=== PATIENT | female | born 1940 | race African-American/Black ===

== ENCOUNTER 2017-05-21 11:11 | Day surgery (SDC) | payer MEDICARE, OTHER ==
[~2017-05-21 11:11] MED LIST: Buffered Lidocaine 0.9% SYRIN* 5 ML/SYR SYRINGE INTRADERM ONE
[2017-05-21] MEDS ORDERED: Clindamycin 900 MG IVPREMIX(* 900 MG/50 ML SDV IV ONE (11:22)
[2017-05-21] MEDS ORDERED: Buffered Lidocaine 0.9% SYRIN* 5 ML/SYR SYRINGE ONE (11:22)
[2017-05-21] MEDS ORDERED: Bupivacaine 0.25% SDV* 30 ML ONE (13:31)
[2017-05-21] MEDS ORDERED: Midazolam* 1 MG/ML 5 ML VIAL (5 MG) ONE (13:57)
[2017-05-21 14:56] VITALS: BP 141/78
== END 2017-05-21 15:13 | disposition home or self-care (01) ==
LOC: OREAST 11:11
PROVIDERS: ATTEND Plastic Surgery
DX: G56.02 Carpal tunnel syndrome, left upper limb (principal); I10 Essential (primary) hypertension; E06.3 Autoimmune thyroiditis; Z87.891 Personal history of nicotine dependence
CPT/HCPCS: J2250

== ENCOUNTER 2017-09-13 19:15 | Emergency (ER) | payer MEDICARE, OTHER ==
[2017-09-13 20:25] LABS: Hematocrit 35 % (35-47); Hemoglobin 12.1 g/dl (12.0-16.0); Mean Corpuscular HGB Conc 34 g/dl (31-36); Mean Corpuscular Hemoglobin 32 pg (27-31); Mean Corpuscular Volume 93 fL (80-97); Mean Platelet Volume 8 um3 (7.4-10.4); Red Cell Distribution Width 15 % (10.5-15); White Blood Count 7.1 10^3/ul (3.5-10.8)
[2017-09-13 20:38] LABS: Albumin 3.9 g/dL (3.2-5.2); BUN/Creatinine Ratio 20.4 (8-20); Calcium 9.8 mg/dL (8.6-10.3); EGFR African American 67.2 (>60); EGFR Non-African American 52.2 (>60); Globulin 2.9 g/dL (2-4); Magnesium 1.9 mg/dL (1.9-2.7); Potassium 3.3 mmol/L (3.5-5.0); Total Bilirubin 0.4 mg/dL (0.2-1.0); Total Protein 6.8 g/dL (6.4-8.9)
[2017-09-13 20:39] LABS: Troponin I 0.01 ng/mL (<0.04)
[2017-09-13 21:18] LABS: TSH (Thyroid Stimulating Horm) 0.65 mcIU/mL (0.34-5.60)
--- NOTE | 2017-09-13 22:24 | ED ---
Leonor Mejia SooYoung, scribed for Kevin Gurrola MD on 09/13/17 at 1934 . 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 Pt was in a restaurant with her friend, and pt experienced dyspnea, noticed she was having difficulty speaking because she didn't have enough breath. Pt waited for her breathing to return to normally, but it didn't quite resolve. Associated sx: dizziness described as lightheadedness, diaphoretic. Pt denies feeling any pain anywhere. Denies pallor. Pt states feeling OK at bedside. Pt and friend were at a concert prior to dinner, and friend states they did a fair amount of walking. Pt is physically active, works out 3x a week. Non-smoker. No PMHx of cardiac issues. - History Of Current Complaint Chief Complaint: EDDizziness Stated Complaint: DIZZINESS Time Seen by Provider: 09/13/17 19:26 Hx Obtained From: Patient, Family/Babcock Tester - neighbor/friend Onset/Duration: Resolved Timing: Minutes Severity Initially: Moderate Severity Currently: Moderate Character: Lightheaded Associated Signs And Symptoms: Positive: Diaphoresis, Other: - dizziness - Allergies/Home Medications Allergies/Adverse Reactions: Allergies Allergy/AdvReac Type Severity Reaction Status Date / Time Penicillins Allergy Unknown Unknown Verified 09/13/17 19:42 Reaction Details PMH/Surg Hx/FS Hx/Imm Hx Previously Healthy: No Endocrine/Hematology History: Reports: Hx Thyroid Disease - GOITER Denies: Hx Diabetes Cardiovascular History: Reports: Hx Angina, Hx Cardiomegaly - NO PROBLEMS, Hx Hypertension - CONTROL WITH MEDS PT. STATES Denies: Hx Hypercholesterolemia, Hx Pacemaker/ICD, Hx Peripheral Vascular Disease Musculoskeletal History: Reports: Hx Osteoporosis, Other Musculoskeletal History - CARPAL TUNNEL LEFT HAND, RIGHT HAND REPAIRED Denies: Hx Arthritis, Hx Rheumatoid Arthritis Sensory History: Reports: Hx Cataracts - BILAT, Hx Contacts or Glasses - GLASSES , Hx Hearing Aid - BILAT Denies: Hx Glaucoma Opthamlomology History: Reports: Hx Cataracts - BILAT, Hx Contacts or Glasses - GLASSES Denies: Hx Glaucoma Neurological History: Denies: Hx Headaches, Hx Seizures, Hx Transient Ischemic Attacks (TIA) Psychiatric History: Denies: Hx Anxiety, Hx Depression, Hx Panic Disorder - Cancer History Hx Chemotherapy: No Hx Radiation Therapy: No - Surgical History Surgery Procedure, Year, and Place: myomectomy 1970's,RIGHT carpal tunnel,[facility]. left breast biopsy, [facility] 2006 Hx Anesthesia Reactions: No - Family History Known Family History: Positive: Cardiac Disease, Hypertension, Diabetes, Other - [place] - Social History Occupation: Employed Full-time Lives: Alone Alcohol Use: Weekly Alcohol Amount: WINE Hx Substance Use: No Substance Use Type: Reports: None Hx Tobacco Use: Yes Smoking Status (MU): Former Smoker Amount Used/How Often: 1/2 PPD Length of Time of Smoking/Using Tobacco: 15 YEARS Have You Smoked in the Last Year: No Review of Systems Positive: Skin Diaphoresis. Negative: Other - neg: pallor Positive: Other - pos: dyspnea Neurological: Other - pos: dizziness/lightheadedness All Other Systems Reviewed And Are Negative: Yes Physical Exam - Summary Physical Exam Summary: The patient is well-nourished in no acute distress and in no acute pain. The skin is warm and dry and skin color reflects adequate perfusion. HEENT: The head is normocephalic and atraumatic. The pupils are equal and reactive. The conjunctivae are clear and without drainage. Nares are patent and without drainage. Mouth reveals moist mucous membranes and the throat is without erythema and exudate. The external ears are intact. The ear canals are patent and without drainage. The tympanic membranes are intact. Neck is supple with full range of motion and non-tender. There are no carotid bruits. There is no neck vein distension. Respiratory: Chest is non-tender. Lungs are clear to auscultation and breath sounds are symmetrical and equal. Cardiovascular: Hear is regular rate and rhythm. There is no murmur or rub auscultated. There is no peripheral edema and pulses are symmetrical and equal. Abdomen: The abdomen is soft and non-tender. There are normal bowel sounds heard in all four quadrants and there is no organomegaly palpated. Musculoskeletal: There is no back pain noted. Extremities are non-tender with full range of motion. There is good capillary refill. There is no peripheral edema or calf tenderness elicited. Neurological: Patient is alert and oriented to person, place and time. The patient has symmetrical motor strength in all four extremities. Cranial nerves are grossly intact. Deep tendon reflexes are symmetrical and equal in all four extremities. Psychiatric: The patient has an appropriate affect and does not exhibit any anxiety or depression. Triage Information Reviewed: Yes Vital Signs On Initial Exam: Initial Vitals Pulse BP 59 130/68 09/13/17 19:23 09/13/17 19:23 Vital Signs Reviewed: Yes Diagnostics - Vital Signs Vital Signs Pulse BP 09/13/17 19:23 66 110/63 - Laboratory Lab Results: Lab Results 09/13/17 09/13/17 09/13/17 Range/Units 20:15 20:15 20:15 WBC 7.1 (3.5-10.8) 10^3/ul RBC 3.80 L (4.0-5.4) 10^6/ul Hgb 12.1 (12.0-16.0) g/dl Hct 35 (35-47) % MCV 93 (80-97) fL MCH 32 H (27-31) pg MCHC 34 (31-36) g/dl RDW 15 (10.5-15) % Plt Count 220 (150-450) 10^3/ul MPV 8 (7.4-10.4) um3 Neut % (Auto) 78.9 (38-83) % Lymph % (Auto) 12.3 L (25-47) % [place] % (Auto) 7.4 (1-9) % Eos % (Auto) 0.5 (0-6) % Baso % (Auto) 0.9 (0-2) % Absolute Neuts (auto) 5.6 (1.5-7.7) 10^3/ul Absolute Lymphs (auto) 0.9 L (1.0-4.8) 10^3/ul Absolute Monos (auto) 0.5 (0-0.8) 10^3/ul Absolute Eos (auto) 0 (0-0.6) 10^3/ul Absolute Basos (auto) 0.1 (0-0.2) 10^3/ul Absolute Nucleated RBC 0.01 10^3/ul Nucleated RBC % 0.1 Sodium 138 (133-145) mmol/L Potassium 3.3 L (3.5-5.0) mmol/L Chloride 102 (101-111) mmol/L Carbon Dioxide 28 (22-32) mmol/L Anion Gap 8 (2-11) mmol/L BUN 21 (6-24) mg/dL Creatinine 1.03 H (0.51-0.95) mg/dL Est GFR ( Amer) 67.2 (>60) Est GFR (Non-Af Amer) 52.2 (>60) BUN/Creatinine Ratio 20.4 H (8-20) Glucose 88 (70-100) mg/dL Lactic Acid 1.3 (0.5-2.0) mmol/L Calcium 9.8 (8.6-10.3) mg/dL Magnesium 1.9 (1.9-2.7) mg/dL Total Bilirubin 0.40 (0.2-1.0) mg/dL AST 22 (13-39) U/L ALT 12 (7-52) U/L Alkaline Phosphatase 54 (34-104) U/L Troponin I 0.01 (<0.04) ng/mL Total Protein 6.8 (6.4-8.9) g/dL Albumin 3.9 (3.2-5.2) g/dL Globulin 2.9 (2-4) g/dL Albumin/Globulin Ratio 1.3 (1-3) TSH 0.65 (0.34-5.60) mcIU/mL // Range/Units 21:50 WBC (3.5-10.8) 10^3/ul RBC (4.0-5.4) 10^6/ul Hgb (12.0-16.0) g/dl Hct (35-47) % MCV (80-97) fL MCH (27-31) pg MCHC (31-36) g/dl RDW (10.5-15) % Plt Count (150-450) 10^3/ul MPV (7.4-10.4) um3 Neut % (Auto) (38-83) % Lymph % (Auto) (25-47) % [place] % (Auto) (1-9) % Eos % (Auto) (0-6) % Baso % (Auto) (0-2) % Absolute Neuts (auto) (1.5-7.7) 10^3/ul Absolute Lymphs (auto) (1.0-4.8) 10^3/ul Absolute Monos (auto) (0-0.8) 10^3/ul Absolute Eos (auto) (0-0.6) 10^3/ul Absolute Basos (auto) (0-0.2) 10^3/ul Absolute Nucleated RBC 10^3/ul Nucleated RBC % Sodium (133-145) mmol/L Potassium (3.5-5.0) mmol/L Chloride (101-111) mmol/L Carbon Dioxide (22-32) mmol/L Anion Gap (2-11) mmol/L BUN (6-24) mg/dL Creatinine (0.51-0.95) mg/dL Est GFR ( Amer) (>60) Est GFR (Non-Af Amer) (>60) BUN/Creatinine Ratio (8-20) Glucose (70-100) mg/dL Lactic Acid (0.5-2.0) mmol/L Calcium (8.6-10.3) mg/dL Magnesium (1.9-2.7) mg/dL Total Bilirubin (0.2-1.0) mg/dL AST (13-39) U/L ALT (7-52) U/L Alkaline Phosphatase (34-104) U/L Troponin I 0.01 (<0.04) ng/mL Total Protein (6.4-8.9) g/dL Albumin (3.2-5.2) g/dL Globulin (2-4) g/dL Albumin/Globulin Ratio (1-3) TSH (0.34-5.60) mcIU/mL Result Diagrams: 09/13/17 20:15 09/13/17 20:15 Lab Statement: Any lab studies that have been ordered have been reviewed, and results considered in the medical decision making process. - EKG 2032 Cardiac Rate: NL EKG Rhythm: Sinus Rhythm - 61bpm EKG Interpretation: Non-specific T wave changes in anterior leads 2123 Cardiac Rate: NL EKG Rhythm: Sinus Rhythm EKG Comparison: No Significant Change - from EKG at 2032 Re-Evaluation - Re-Evaluation 1 Re-Evaluation Time: 21:45 Change: Unchanged Comment: Discussing results with pt. Pt is still feeling OK. Will draw 2nd trop. Dizzy Course/Dx - Course Course Of Treatment: Ms. Myers presented after a near syncopal episode that had resolved. At no point did she have SOB or chest pain. It occured as she was just finishiing a large meal. She describes a vagal-type reaction and she was monitored here without any changes. Her initial ecg showed wome nondiagnostic T wave changes in the anteroseptal leads. We have no old ones to compare. A second ecg was unchanged and two trops were negative. - Diagnoses Provider Diagnoses: Vasovagal syncope Discharge - Discharge Plan Condition: Stable Disposition: HOME Patient Education Materials: Syncope (ED) Referrals: Yohan Nunez MD [Primary Care Provider] - Additional Instructions: Please return to the ED if you experience new or worsening symptoms. The documentation as recorded by the Leonor marroquin SooYoung accurately reflects the service I personally performed and the decisions made by me, Kevin Gurrola MD.
[2017-09-13 22:38] VITALS: BP 129/65
== END 2017-09-13 22:40 | disposition home or self-care (01) ==
LOC: ED 19:15
DX: R55 Syncope and collapse (principal); E04.9 Nontoxic goiter, unspecified; I10 Essential (primary) hypertension; I20.9 Angina pectoris, unspecified; I51.7 Cardiomegaly
CPT/HCPCS: 36415; 80053; 83605; 83735; 84443; 84484; 85025; 93005; 99284

== ENCOUNTER 2020-10-02 06:34 | Observation (INO) ==
[~2020-10-02 06:34] MED LIST changes: -Buffered Lidocaine 0.9% SYRIN* 5 ML/SYR SYRINGE INTRADERM ONE; +Buffered Lidocaine 1% SYRIN 1 ml INTRADERM ONE; +Dexamethasone IV 4 MG/ML VIAL 1 ml VIAL IV SLOW PU ONE; +Famotidine IV 10 MG/ML 2 ml VIAL (20 mg) IV ONE; +Lactated Ringers 1000 ml BAG 1,000 ML IV SCH
[2020-10-02] MEDS ORDERED: Dexamethasone IV 4 MG/ML VIAL 1 ml VIAL ONE (06:46)
[2020-10-02] MEDS ORDERED: Clindamycin 900 MG/D5W BAG 900 MG/50 ML BAG IVPB ONE (06:47)
[2020-10-02] MEDS ORDERED: Famotidine IV 10 MG/ML 2 ml VIAL (20 mg) ONE (06:47)
[2020-10-02] MEDS ORDERED: Midazolam 2 mg/2 ml VIAL 1 mg/ml 2 ml VIAL (2 mg) ONE (07:23)
[2020-10-02] MEDS ORDERED: Lidocaine 2% PF 5 ML VIAL ONE (07:23)
[2020-10-02] MEDS ORDERED: Sodium Chloride 0.9% 0 ML ONE (07:24)
[2020-10-02] MEDS ORDERED: Propofol 10 mg/ml 100 ML BTL 0 ML ONE (07:30)
[2020-10-02] MEDS ORDERED: ROPIVACAINE 5 MG/ML 30 ML BTL (0.5%) ONE (07:34)
[2020-10-02] MEDS ORDERED: Propofol 10 MG/ML 20 ML BTL ONE (07:53)
[2020-10-02] MEDS ORDERED: fentaNYL 100 mcg/2 ml 50 MCG/ML VIAL ONE ×3 (07:53→11:10)
[2020-10-02] MEDS ORDERED: Rocuronium 50 mg VIAL 10 mg/ml 5 ml VIAL (50 mg) ONE (07:54)
[2020-10-02] MEDS ORDERED: Naloxone 0.4 mg VIAL 0.4 mg/ml 1 ml VIAL IV PRN (08:05)
[2020-10-02] MEDS ORDERED: Prochlorperazine 5 mg/ml 2 ml VIAL (10 mg) IV PRN (08:05)
[2020-10-02] MEDS ORDERED: EPHEDrine (Pressors) 50 MG/ML VIAL ONE (08:33)
[2020-10-02] MEDS ORDERED: Glycopyrrolate IV 0.2 MG/ML 1 ML VIAL ONE (08:52)
[2020-10-02] MEDS ORDERED: Acetaminophen IV 1 GM/100ML 100 ML ONE (08:53)
[2020-10-02] MEDS ORDERED: Ondansetron 4 mg VIAL 2 MG/ML 2 ml VIAL ONE (08:53)
[2020-10-02] MEDS ORDERED: HYDROmorphone 1 MG/1 ML SYRINGE ONE (09:05)
[2020-10-02] MEDS ORDERED: Phenylephrine 40 mcg/mL 10mL (400mcg) SYRINGE ONE (10:27)
[2020-10-02] MEDS ORDERED: Lactulose 30 ml UDC PO PRN (10:43)
[2020-10-02] MEDS ORDERED: Ondansetron 4 mg VIAL 2 MG/ML 2 ml VIAL IV PRN (10:43)
[2020-10-02] MEDS ORDERED: Morphine 2 MG/ML SYRINGE IV PRN (10:43)
[2020-10-02] MEDS ORDERED: diPHENhydraMINE 25 mg TAB PO PRN (10:43)
[2020-10-02] MEDS ORDERED: diPHENhydraMINE IV 50 MG/ML 1 ml VIAL (BENADRYL) IV PRN (10:43)
[2020-10-02] MEDS ORDERED: Ondansetron ODT 4 mg TAB 4 MG TAB PO PRN (10:43)
[2020-10-02] MEDS ORDERED: Magnesium Hydroxide LIQ 30 ML UDC PO PRN (10:43)
[2020-10-02] MEDS: fentaNYL 100 mcg/2 ml 50 MCG/ML VIAL IV PRN ×4 (10:47→11:56)
[2020-10-02] MEDS ORDERED: hydrALAZINE 20 mg/ml 1 ML Vial IV IV SLOW PU PRN (11:16)
[2020-10-02] MEDS ORDERED: hydrALAZINE 20 mg/ml 1 ML Vial IV ONE (11:21)
[2020-10-02] MEDS: Lactated Ringers 1000 ml BAG 1,000 ML IV SCH ×2 (12:32→23:12)
[2020-10-02] MEDS: Clindamycin 600 MG/D5W BAG 600 MG/50 ML BAG IV SCH (17:13)
[2020-10-02] MEDS: Magnesium Hydroxide LIQ 30 ML UDC PO SCH (21:33)
[2020-10-03] MEDS: Clindamycin 600 MG/D5W BAG 600 MG/50 ML BAG IV SCH ×2 (00:34→09:32)
[2020-10-03 06:01] LABS: Hematocrit 32 % (35-47); Hemoglobin 10.8 g/dL (12.0-16.0); Platelet Count 217 10^3/uL (150-450)
[2020-10-03 06:24] LABS: BUN/Creatinine Ratio 24.7 (8-20); Calcium 9.1 mg/dL (8.6-10.3); EGFR African American 78.3 (>60); EGFR Non-African American 64.7 (>60); Potassium 4.5 mmol/L (3.5-5.0)
[2020-10-03] MEDS: Magnesium Hydroxide LIQ 30 ML UDC PO SCH (07:52)
[2020-10-03] MEDS ORDERED: Vitamin THERAPEUTIC TAB PO SCH (09:00)
[2020-10-03 11:18] VITALS: BP 107/54
== END 2020-10-03 14:04 | disposition home or self-care (01) ==
LOC: SSU 06:34 → OR 06:34
PROVIDERS: ADMIT Orthopaedic Surgery Adult Reconstructive Orthopaedic Surgery; ATTEND Orthopaedic Surgery Adult Reconstructive Orthopaedic Surgery

== ENCOUNTER 2024-10-24 07:39 | Inpatient (IN) ==
[~2024-10-24 07:39] MED LIST changes: -Buffered Lidocaine 1% SYRIN 1 ml INTRADERM ONE; -Dexamethasone IV 4 MG/ML VIAL 1 ml VIAL IV SLOW PU ONE; -Famotidine IV 10 MG/ML 2 ml VIAL (20 mg) IV ONE; +HYDROmorphone 1 MG/1 ML SYRINGE IV PRN; -Lactated Ringers 1000 ml BAG 1,000 ML IV SCH; +Naloxone 0.4 mg VIAL 0.4 mg/ml 1 ml VIAL IV PRN; +Ondansetron 4 mg VIAL 2 MG/ML 2 ml VIAL IV PRN
[2024-10-24] MEDS: Buffered Lidocaine 1% SYRIN 1 ml INTRADERM ONE (08:12)
[2024-10-24] MEDS: Scopolamine 1 mg/72hr PATCH TRANSDERM ONE (08:13)
[2024-10-24] MEDS ORDERED: Clindamycin 900 MG/50 **NS BAG 900 MG/50 ML BAG ONE (08:19)
[2024-10-24 08:22] LABS: Rapid COVID-19 Molecular Undetected (Undetected)
[2024-10-24] MEDS: Lactated Ringers 1000 ml BAG 1,000 ML IV SCH ×2 (08:35→17:38)
[2024-10-24] MEDS: Acetaminophen IV 1 GM/100ML 1,000 MG/100 ML BAG IV ONE (08:35)
[2024-10-24] MEDS ORDERED: fentaNYL 100 mcg/2 ml 50 MCG/ML VIAL ONE ×3 (09:59→16:05)
[2024-10-24] MEDS ORDERED: Lidocaine 2% PF 5 ML VIAL ONE (09:59)
[2024-10-24] MEDS ORDERED: Propofol 10 MG/ML 20 ML BTL ONE (09:59)
[2024-10-24] MEDS ORDERED: Rocuronium 50 mg VIAL 10 mg/ml 5 ml VIAL (50 mg) ONE ×2 (09:59→12:56)
[2024-10-24] MEDS ORDERED: Ondansetron 4 mg VIAL 2 MG/ML 2 ml VIAL ONE (09:59)
[2024-10-24] MEDS ORDERED: Dexamethasone IV 4 MG/ML VIAL 1 ml VIAL ONE (09:59)
[2024-10-24] MEDS ORDERED: Lidocaine 1% VIAL 10 MG/ML 30 ML VIAL ONE (10:45)
[2024-10-24] MEDS ORDERED: Bupivacaine 0.25% w/EPI 10 ML SDV ONE (10:45)
[2024-10-24] MEDS ORDERED: Glycopyrrolate IV 0.2 MG/ML 1 ML VIAL ONE (11:30)
[2024-10-24] MEDS ORDERED: KETAMINE HCL 10 MG/ML 20 ml VIAL (200 MG) ONE (11:31)
[2024-10-24] MEDS ORDERED: Phenylephrine 40 mcg/mL 10mL (400mcg) SYRINGE ONE (11:52)
[2024-10-24] MEDS ORDERED: Phenylephrine IV 10 MG/ML 1 ml VIAL ONE (12:29)
[2024-10-24] MEDS ORDERED: oxyCODONE/Acetamin 5/325 mg TAB PO PRN (14:53)
[2024-10-24] MEDS ORDERED: Ondansetron 4 mg VIAL 2 MG/ML 2 ml VIAL IV PRN (14:53)
[2024-10-24] MEDS: fentaNYL 100 mcg/2 ml 50 MCG/ML VIAL IV PRN (15:01)
[2024-10-24] MEDS ORDERED: Morphine 2 MG/ML SYRINGE IV PRN (15:11)
[2024-10-24] MEDS ORDERED: Acetaminophen IV 1 GM/100ML 1,000 MG/100 ML BAG IV ONE (15:59)
[2024-10-24] MEDS: GENTAMICIN ADULT IVPB ONE (17:36)
[2024-10-24] MEDS: NS 0.9% IVPB ONE (17:36)
[2024-10-24] MEDS: Acetaminophen IV 1 GM/100ML 1,000 MG/100 ML BAG IV SCH (23:58)
[2024-10-25 06:36] LABS: ABS Lymphocytes 1.1 10^3/uL (1.0-4.8); ABS Monocytes 0.4 10^3/uL (0.0-0.9); ABS Neutrophils 5.3 10^3/uL (1.5-7.6); ABS Nucleated RBC 0.01 10^3/ul; Hematocrit 35.8 % (35-45); Hemoglobin 11.9 g/dL (11.5-14.3); Lymphocyte % 16.6 %; Mean Corpuscular Hemoglobin 30.8 pg (27-33); Mean Corpuscular Hgb Conc 33.4 g/dL (31-36); Mean Corpuscular Volume 92.3 fL (80-97); Nucleated Red Blood Cells % 0.1 %/100WBC (0.0-0.8); Platelet Count 301 10^3/uL (150-450); Red Blood Count 3.88 10^6/uL (3.63-4.92); Red Cell Distribution Width 14.8 % (12-17); White Blood Count 6.9 10^3/uL (3.8-11.8)
[2024-10-25 07:38] LABS: Creatinine, Serum 0.82 mg/dL (0.51-0.95); Magnesium 1.8 mg/dL (1.9-2.7); Potassium 3.5 mmol/L (3.5-5.0); eGFR CKD-EPI 71.4 (>60)
[2024-10-25] MEDS: Enoxaparin 40 MG/0.4 ML SYR SUBCUT SCH (08:10)
[2024-10-25] MEDS: Magnesium Sulfate 2 gm BAG 2 GM/50 ML BAG IVPB ONE (09:39)
[2024-10-27 14:02] VITALS: BP 119/71
== END 2024-10-27 16:36 | disposition home or self-care (01) | DRG 331 ==
LOC: SSU 07:39 → OR 07:39 → OBSVTOIN 17:06
PROVIDERS: ADMIT Surgery; ATTEND Surgery